=== PATIENT | female | born 1975 | race American Indian/Alaskan Native ===

== ENCOUNTER 2019-01-10 11:20 | Emergency (ER) | payer SELFPAY ==
[2019-01-10 11:51] VITALS: BP 142/72
--- NOTE | 2019-01-10 11:55 | Emergency Department Report ---
Chief Complaint: Extremity Injury, Lower Stated Complaint: LFT ANKLE SWOLLEN/PAIN Time Seen by Provider: 01/10/19 11:48 - HPI History of Present Illness: a/c l foot/ankle pain sprain years ago now swollen p work requesting work note - ROS Review of Systems: l ankle pain - Exam Vital Signs: Vital Signs 01/10/19 11:48 Temperature 99 F Pulse Rate 88 Respiratory 16 Rate Blood Pressure 142/72 O2 Sat by Pulse 100 Oximetry Physical Exam: neurovasc intact plus 2 dp ambulatory mild lateral swelling no limb threat MSE screening note: Focused history and physical exam performed. Due to findings the following was ordered: Patient discussed with doctor:: [facility] ED Medical Decision Making - Medical Decision Making a/c pain left ankle/foot hx of trauma; saw ortho nothing they can do; old sprain no need for xray pt educated will dc from triage referred to ortho Vital Signs 01/10/19 11:48 Temperature 99 F Pulse Rate 88 Respiratory 16 Rate Blood Pressure 142/72 O2 Sat by Pulse 100 Oximetry ED Disposition for MSE Clinical Impression: Chronic pain of left ankle Disposition: DC-01 TO HOME OR SELFCARE Is pt being admited?: No Does the pt Need Aspirin: No Condition: Stable Instructions: Arthralgia (ED) Additional Instructions: ICE ANKLE REST IT OVER THE NEXT SEVERAL DAYS 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
== END 2019-01-10 12:03 | disposition home or self-care (01) ==
LOC: ED 11:20
DX: M25.572 Pain in left ankle and joints of left foot (principal); G89.29 Other chronic pain; Z88.6 Allergy status to analgesic agent
CPT/HCPCS: 99282

== ENCOUNTER 2021-12-29 09:46 | Emergency (ER) | payer SELFPAY ==
[2021-12-29 09:51] VITALS: BP 127/80
[2021-12-29] MEDS ORDERED: oxyCODONE /ACETAMINOPHEN 5-325MG TAB PO ONE (11:21)
[2021-12-29] MEDS ORDERED: KETOROLAC 10 MG TAB PO ONE (11:21)
--- NOTE | 2021-12-29 11:55 | XRay Report ---
LEFT FOOT 3 VIEWS INDICATION / CLINICAL INFORMATION: Left foot pain and swelling after fall. COMPARISON: None available. FINDINGS: BONES and JOINT(S): No acute fracture or subluxation. There is a probable old avulsion fracture of th e posterior/lateral corner of the medial cuneiform bone. 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 No other significant arthritic changes. SOFT TISSUES: Moderate edema is noted dorsally along the hindfoot and anteriorly along the ankle. No other significant abnormality. ADDITIONAL FINDINGS: None. IMPRESSION: Soft tissue swelling as above could reflect an underlying ligament/tendon injury. No other acute find ings. Signer Name: Jorge A Bear MD Signed: 12/29/2021 11:51 AM Workstation Name: [id number]
--- NOTE | 2021-12-29 12:26 | Emergency Department Report ---
ED Extremity Problem HPI - General Chief complaint: Extremity Problem,Nontraumatic Stated complaint: LEFT FOOT/ARM/BACK PAIN FELL ON BUS 4 DAYS AGO Time Seen by Provider: 12/29/21 10:58 Source: patient Mode of arrival: Ambulatory Limitations: No Limitations - History of Present Illness Initial comments: 46-year-old black female presents to the emergency department after a fall. She states that she got an MRI and noticed on December 24, the lumber driver pulled off, and she fell and landed on her left side. She denies loss of consciousness but states that she has had pain to her left foot since then along with left lower back pain and left shoulder pain. MD Complaint: extremity pain -: Gradual, days(s) (5) Location: left (Entire left side) History of Same: No -: Yes myalgia, No arthralgia, No fever, No associated dyspnea, No associated chest pain Severity scale (0 -10): 7 Quality: aching Consistency: constant Worsens with: weight bearing Associated Symptoms: denies: chest pain, shortness of breath, fever, myalgias, arthralgias, rash - Related Data Home Medications Medication Instructions Recorded Confirmed Last Taken FLUoxetine HCL [FLUoxetine] 40 mg PO DAILY 04/14/16 04/14/16 Unknown Gabapentin [Neurontin] 100 mg PO DAILY 04/14/16 04/14/16 Unknown Penitas Carbonate 300 mg PO DAILY 04/14/16 04/14/16 Unknown Penitas Carbonate 600 mg PO QHS 04/14/16 04/14/16 Unknown QUEtiapine [SEROquel] 100 mg PO DAILY 04/14/16 04/14/16 Unknown QUEtiapine [SEROquel] 300 mg PO QHS 04/14/16 04/14/16 Unknown lamoTRIgine [LaMICtal] 100 mg PO QDAY 04/14/16 04/14/16 Unknown Previous Rx's Medication Instructions Recorded Last Taken Type predniSONE [Deltasone] 20 mg PO DAILY #5 tablet 01/10/19 Unknown Rx Cyclobenzaprine [Flexeril] 10 mg PO TID PRN #30 tab 12/29/21 Unknown Rx Lidocaine [Lidoderm] 1 each TP TID PRN #10 patch 12/29/21 Unknown Rx Naproxen [Naprosyn] 500 mg PO BID #14 tab 12/29/21 Unknown Rx Allergies Allergy/AdvReac Type Severity Reaction Status Date / Time tramadol Allergy Itching Verified 12/29/21 09:51 ED Review of Systems ROS: Stated complaint: LEFT FOOT/ARM/BACK PAIN FELL ON BUS 4 DAYS AGO Other details as noted in HPI Comment: All other systems reviewed and negative Constitutional: denies: chills, fever, weakness Respiratory: denies: shortness of breath, wheezing Cardiovascular: denies: chest pain, palpitations Gastrointestinal: denies: abdominal pain, nausea, vomiting Genitourinary: denies: urgency, dysuria, frequency, hematuria, discharge, abnormal menses, dyspareunia Musculoskeletal: back pain Neurological: denies: headache, weakness ED Past Medical Hx - Past Medical History Hx Hypertension: No Hx Psychiatric Treatment: Yes ([facility]) - Surgical History Additional Surgical History: C SECTION X 2 - Social History Smoking Status: Never Smoker Substance Use Type: None - Medications Home Medications: Home Medications Medication Instructions Recorded Confirmed Last Taken Type FLUoxetine HCL [FLUoxetine] 40 mg PO DAILY 04/14/16 04/14/16 Unknown History Gabapentin [Neurontin] 100 mg PO DAILY 04/14/16 04/14/16 Unknown History Penitas Carbonate 300 mg PO DAILY 04/14/16 04/14/16 Unknown History Penitas Carbonate 600 mg PO QHS 04/14/16 04/14/16 Unknown History QUEtiapine [SEROquel] 100 mg PO DAILY 04/14/16 04/14/16 Unknown History QUEtiapine [SEROquel] 300 mg PO QHS 04/14/16 04/14/16 Unknown History lamoTRIgine [LaMICtal] 100 mg PO QDAY 04/14/16 04/14/16 Unknown History predniSONE [Deltasone] 20 mg PO DAILY #5 tablet 01/10/19 Unknown Rx Cyclobenzaprine [Flexeril] 10 mg PO TID PRN #30 tab 12/29/21 Unknown Rx Lidocaine [Lidoderm] 1 each TP TID PRN #10 patch 12/29/21 Unknown Rx Naproxen [Naprosyn] 500 mg PO BID #14 tab 12/29/21 Unknown Rx ED Physical Exam - General Limitations: No Limitations General appearance: alert, in no apparent distress - Head Head exam: Present: atraumatic, normocephalic - Eye Eye exam: Present: normal appearance. Absent: conjunctival injection, periorbital swelling, periorbital tenderness - Neck Neck exam: Present: normal inspection, full ROM. Absent: tenderness, lymphadenopathy - Respiratory Respiratory exam: Absent: respiratory distress - Cardiovascular Cardiovascular Exam: Present: regular rate - GI/Abdominal GI/Abdominal exam: Absent: distended, tenderness - Expanded Lower Extremity Exam Left Ankle exam: Present: full ROM, tenderness, swelling. Absent: abrasion, laceration, ecchymosis, deformity, erythema Foot/Toe exam: Present: full ROM, tenderness, swelling. Absent: abrasion, laceration, ecchymosis, deformity, crepidus, dislocation, erythema, amputation, puncture wound, tenderness at base of 5th metatarsal, nail avulsion, subungual hematoma Neuro vascular tendon exam: Present: no vascular compromise. Absent: pulse deficit, abnormal cap refill, extremity cold to touch, pallor Gait: Positive: observed and limited by pain - Back Exam Back exam: Present: normal inspection, tenderness (Left lower only), muscle spasm. Absent: paraspinal tenderness, vertebral tenderness - Neurological Exam Neurological exam: Present: alert, oriented X3, CN II-XII intact, normal gait, reflexes normal. Absent: motor sensory deficit - Psychiatric Psychiatric exam: Present: normal affect, normal mood - Skin Skin exam: Present: warm, dry, intact, normal color ED Course Vital Signs 12/29/21 09:48 Temperature 98.3 F Pulse Rate 87 Respiratory 18 Rate Blood Pressure 127/80 [Right] O2 Sat by Pulse 99 Oximetry ED Medical Decision Making - Radiology Data Radiology results: report reviewed, image reviewed Left foot x-ray: FINDINGS: BONES and JOINT(S): No acute fracture or subluxation. There is a probable old avulsion fracture of the posterior/lateral corner of the medial cuneiform bone. Mild degenerative arthrosis is seen at the talonavicular joint. No other significant arthritic changes. SOFT TISSUES: Moderate edema is noted dorsally along the hindfoot and anteriorly along the ankle. No other significant abnormality. ADDITIONAL FINDINGS: None. IMPRESSION: Soft tissue swelling as above could reflect an underlying ligament/tendon injury. No other acute findings. - Medical Decision Making 46-year-old black female presents to the emergency department after a fall. She states that she got an MRI and noticed on December 24, the lumber driver pulled off, and she fell and landed on her left side. She denies loss of consciousness but states that she has had pain to her left foot since then along with left lower back pain and left shoulder pain. Left foot x-ray without any acute abnormalities noted, apply Del wrap placed to left foot. Physical exam unremarkable. Patient will be discharged home with naproxen, Flexeril, and Lidoderm patches to use as needed. She is advised to follow-up with her primary care provider or orthopedics if no improvement or worsening symptoms. She is advised to return to the emergency department as needed. She verbalizes understanding of and agreement with plan of care. Critical care attestation.: If time is entered above; I have spent that time in minutes in the direct care of this critically ill patient, excluding procedure time. ED Disposition Clinical Impression: Left foot pain Back pain Qualifiers: Back pain location: low back pain Chronicity: acute Back pain laterality: left Sciatica presence: without sciatica Qualified Code(s): M54.50 - Low back pain, unspecified Fall Qualifiers: Encounter type: initial encounter Qualified Code(s): W19.XXXA - Unspecified fall, initial encounter Disposition: HOME / SELF CARE / HOMELESS Is pt being admited?: No Does the pt Need Aspirin: No Condition: Stable Instructions: Lumbar Sprain, Acute Back Pain, Adult, Musculoskeletal Pain, Low Back Sprain or Strain Rehab-SportsMed Additional Instructions: Take medications as prescribed. Follow-up with your primary care provider if no improvement or worsening symptoms. Return to the emergency department as needed. Prescriptions: Cyclobenzaprine [Flexeril] 10 mg PO TID PRN #30 tab PRN Reason: Muscle Spasm Lidocaine [Lidoderm] 1 each TP TID PRN #10 patch PRN Reason: Pain, Moderate (4-6) Naproxen [Naprosyn] 500 mg PO BID #14 tab Referrals: DIAMANTE KUMARI MD [Staff Physician] - 3-5 Days GARRICK ZIEGLER MD [Staff Physician] - 3-5 Days Forms: Work/School Release Form(ED) Time of Disposition: 12:28
== END 2021-12-29 16:12 | disposition home or self-care (01) ==
LOC: ED 09:46
DX: M79.672 Pain in left foot (principal); M54.50 Low back pain, unspecified; M25.512 Pain in left shoulder; F20.9 Schizophrenia, unspecified; Z88.6 Allergy status to analgesic agent; Z98.890 Other specified postprocedural states; W18.39XA Other fall on same level, initial encounter; Y93.89 Activity, other specified; Y92.89 Other specified places as the place of occurrence of the external cause; Y99.8 Other external cause status
CPT/HCPCS: 99283